=== PATIENT | male | born 1975 | race Two or more races ===

== ENCOUNTER 2016-12-25 00:01 | Emergency (ER) | payer OTHER ==
[2016-12-25] MEDS ORDERED: IV NORMAL SALINE 1,000ML 1,000 ML IV SCH (00:33)
[2016-12-25] MEDS ORDERED: LIDOCAINE/EPI/TETRACAINE TOPICAL GEL 3 ML. TP ONE (01:00)
[2016-12-25] MEDS: MORPHINE SULFATE 4 MG/ML DISP.SYRIN. IV/SQ PRN ×4 (01:00→03:52)
[2016-12-25 01:03] LABS: BASO # 0.1 x10^3/uL (0.0-0.2); BASO % 1 % (0-3); EOS % 0 % (0-3); HEMATOCRIT 47.1 % (39.0-53.0); HEMOGLOBIN 15.9 g/dL (13.0-17.5); LYMPH # 2.2 x10^3/uL (1.0-4.8); LYMPH % 19 % (24-48); MEAN CORPUSCULAR HEMOGLOBIN 31 pg (25-35); MEAN CORPUSCULAR HGB CONC 34 g/dL (31-37); MEAN CORPUSCULAR VOLUME 93 fL (79-100); MONO # 1.1 x10^3/uL (0.0-1.1); MONO % 10 % (0-9); NEUT # 8.3 x10^3uL (1.8-7.7); NEUT % 71 % (31-73); PLATELET COUNT 210 x10^3/uL (140-400); RED BLOOD COUNT 5.08 x10^6/uL (4.30-5.70); RED CELL DISTRIBUTION WIDTH 13.2 % (11.5-14.5); WHITE BLOOD COUNT 11.7 x10^3/uL (4.0-11.0)
[2016-12-25 01:10] LABS: CREATININE 1.1 mg/dL (0.7-1.3); GFR 74.5
[2016-12-25] MEDS ORDERED: DIPHTH,PERTUSS(ACELL),TET TOX 0.5 ML DISP.SYRIN. VAX IM ONE (01:15)
[2016-12-25] MEDS ORDERED: IV NORMAL SALINE 50ML 50 ML ONE (01:25)
[2016-12-25] MEDS ORDERED: cefTRIAXone SODIUM 1 GM VIAL IV ONE (01:25)
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
--- NOTE | 2016-12-25 01:44 | RAD ---
PROCEDURE CT head and maxillofacial and C-spine without contrast HISTORY Pain status post fall TECHNIQUE Noncontrast axial cross sectional CT scanning of the head was performed. Axial helical images were obtained of the face and the C-spine without contrast and axial coronal sagittal reconstruction was performed. CT MAXILLOFACIAL WITHOUT CONTRAST The nasal septum is midline. The ostiomeatal complexes are patent. The paranasal sinuses are clear. The visualized osseous structures appear intact. Impression No acute findings.] CT HEAD WITHOUT CONTRAST: No acute intracranial hemorrhage or midline shift or mass-effect or hydrocephalus or extra-axial fluid collection is seen. No focal hypodense area is seen to indicate an acute infarct or edema radiographically. No skull fracture or pneumocephalus is seen. No opacification of the mastoid sinuses or the paranasal sinuses is seen. The maxillary sinuses are not completely seen in this study. Impression No acute findings. CT C-SPINE WITHOUT CONTRAST: The vertebra bodies are aligned. There is no loss of vertebral stature. There is no prevertebral soft tissue swelling. The C1-C2 relationship is normal. The visualized osseous structures appear intact. Evaluation of the central canal is limited without contrast with is not appear to be significant central or neural foraminal stenosis. Impression No acute findings. PQRS Statement: One or more of the following individualized dose reduction techniques were utilized for this study: 1. Automated exposure control. 2. Adjustment of the mA and/or kV according to patient size. 3. Use of iterative reconstruction technique. Electronically signed by: Biju Cunha MD (December 25, 2016 01:42:58)
[2016-12-25] MEDS ORDERED: ONDANSETRON PF 4 MG/2 ML VIAL. ONE (02:26)
[2016-12-25] MEDS ORDERED: LIDOCAINE 2%/EPI 1:100,000 20 ML VIAL. IJ ONE (02:30)
[2016-12-25] MEDS ORDERED: LIDOCAINE 2% 20 ML VIAL. IJ ONE (02:30)
[2016-12-25] MEDS ORDERED: ONDANSETRON PF 4 MG/2 ML VIAL. IV ONE (02:30)
[2016-12-25] MEDS ORDERED: SULF1TAB24 PO (03:56)
[2016-12-25] MEDS ORDERED: MUPI15CR TP (03:56)
[2016-12-25] MEDS ORDERED: ACETAMINOPHEN/CODEINE 300/30MG 4TABLET STARTPACK. PO ONE (04:00)
[2016-12-25 04:04] VITALS: BP 121/78
== END 2016-12-25 04:15 | disposition home or self-care (01) ==
LOC: ER 00:01
DX: S06.0X0A Concussion without loss of consciousness, initial encounter (principal); S01.111A Laceration without foreign body of right eyelid and periocular area, initial encounter; S01.511A Laceration without foreign body of lip, initial encounter; M54.2 Cervicalgia; W19.XXXA Unspecified fall, initial encounter; Y93.E1 Activity, personal bathing and showering; Y92.89 Other specified places as the place of occurrence of the external cause; Y99.0 Civilian activity done for income or pay
CPT/HCPCS: 12014; 36415; 40650; 70450; 70486; 72125; 80048; 85027; 90471; 90715; 96361; 96365; 96375; 96376; 99285; J0696; J2270; J2405; J2001; J7030